=== PATIENT | female | born 1960 | race Caucasian/White ===

== ENCOUNTER 2023-10-21 11:37 | Emergency (ER) | payer OTHER ==
[~2023-10-21] VITALS: Ht 142.2 cm; Wt 83.5 kg
[~2023-10-21 11:37] MED LIST: LEVO0.1T19 PO
[2023-10-21 12:05] VITALS: BP 132/76; PULSE 97; RESP 16; TEMP 98; O2SAT 92
[2023-10-21] MEDS ORDERED: AZIT250T4 PO (14:50)
[2023-10-21] MEDS ORDERED: PRED20TA5 PO (14:50)
[2023-10-21] MEDS ORDERED: IBUP-2213 PO (14:50)
== END 2023-10-21 14:59 | disposition home or self-care (01) ==
LOC: MED 11:37
DX: J18.9 Pneumonia, unspecified organism (principal); E11.9 Type 2 diabetes mellitus without complications; I10 Essential (primary) hypertension; Z86.39 Personal history of other endocrine, nutritional and metabolic disease; Z90.49 Acquired absence of other specified parts of digestive tract; Z79.899 Other long term (current) drug therapy
CPT/HCPCS: 71046; 99283